=== PATIENT | female | born 1965 | race Caucasian/White ===

== ENCOUNTER 2021-02-28 12:25 | Outpatient (CLI) | payer MEDICARE | END 2021-02-28 12:26 | disposition home or self-care (01) | LOC: NM 12:25 | PROVIDERS: ATTEND Surgery | DX: K82.9 Disease of gallbladder, unspecified (principal); K81.1 Chronic cholecystitis; G24.9 Dystonia, unspecified | CPT/HCPCS: 78227; A9537 ==